=== PATIENT | male | born 1970 | race African-American/Black ===

== ENCOUNTER 2025-06-05 09:12 | Emergency (ER) | payer MEDICAID ==
[~2025-06-05] VITALS: Ht 198.1 cm; Wt 145.0 kg
[2025-06-05 09:19] VITALS: O2SAT 100
[2025-06-05] MEDS ORDERED: BACK1EAC12 MC (11:05)
[2025-06-05] MEDS ORDERED: CYCL5TAB3 MT (11:05)
[2025-06-05] MEDS ORDERED: LIDO700A30 TP (11:05)
[2025-06-05] MEDS ORDERED: IBUP-2030 MT (11:05)
[2025-06-05] MEDS: HYDROCODONE/ACETAMINOPHEN 10/325MG TABLET PO ONE (11:20)
[2025-06-05] MEDS: KETOROLAC 30MG/ML VIAL IM ONE (11:20)
[2025-06-05 11:26] VITALS: BP 131/72; PULSE 86; RESP 17; TEMP 36.9; O2SAT 100
== END 2025-06-05 11:27 | disposition home or self-care (01) ==
LOC: ER 09:31
DX: M54.40 Lumbago with sciatica, unspecified side (principal); E78.00 Pure hypercholesterolemia, unspecified
CPT/HCPCS: 99283; 72100; 96372; J1885

== ENCOUNTER 2025-06-09 21:49 | Emergency (ER) | payer MEDICAID ==
[~2025-06-09] VITALS: Ht 198.1 cm; Wt 145.0 kg
[~2025-06-09 21:49] MED LIST: BACK1EAC12 MC; CYCL5TAB3 MT; IBUP-2030 MT; LIDO700A30 TP
[2025-06-09 22:37] VITALS: O2SAT 98
[2025-06-10] MEDS ORDERED: METHOCARBAMOL 500MG TABLET PO ONE (00:30)
[2025-06-10] MEDS ORDERED: METH-653 MT (00:36)
[2025-06-10] MEDS ORDERED: DICL100G58 TP (00:36)
[2025-06-10 01:30] VITALS: TEMP 36.8; O2SAT 96
[2025-06-10 01:33] VITALS: BP 134/79; PULSE 78; RESP 18
[2025-06-10] MEDS: HYDROCODONE/ACETAMINOPHEN 5/325MG TABLET PO ONE (01:33)
[2025-06-10] MEDS: KETOROLAC 30MG/ML VIAL IM ONE (01:33)
[2025-06-10] MEDS: METHOCARBAMOL 500MG TABLET PO NR (01:34)
== END 2025-06-10 01:36 | disposition home or self-care (01) ==
LOC: ER 21:49
DX: M54.41 Lumbago with sciatica, right side (principal); E78.00 Pure hypercholesterolemia, unspecified; J45.909 Unspecified asthma, uncomplicated
CPT/HCPCS: 99283; 96372; J1885; Z7610